=== PATIENT | male | born 1955 | race Caucasian/White ===

== ENCOUNTER 2017-05-06 11:19 | Emergency (ER) | payer BC ==
--- NOTE | 2017-05-06 11:25 | EDM.PDOC ---
ED HPI GENERAL MEDICAL PROBLEM - General Chief Complaint: Cardiovascular Problem Stated Complaint: SENT BY DR VANG FOR BLOOD CLOT Time Seen by Provider: 05/06/17 11:24 Source of Information: Reports: Patient History Limitations: Reports: No Limitations - History of Present Illness INITIAL COMMENTS - FREE TEXT/NARRATIVE: 62-year-old male sent across from [facility] after CT done this morning identified bilateral pulmonary emboli. Apparently was seen by his physician late Thursday afternoon in December and an last week and did have lab draw. His d- dimer apparently came back markedly elevated and he received a phone call yesterday apparently indicating that he needed a CT pulmonary angiogram. Instead of coming all the way back to [place] he elected to have it done here. He is asymptomatic. He has no dyspnea although he is a little short of breath on exertion. He has no pleuritic chest pain denies any cough or hemoptysis. 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 No history of DVT in the past. No pain in his calves or legs. Therefore essentially has no reason to have bilateral pulmonary emboli. Onset: Sudden Onset Date: 04/30/17 Duration: Day(s): Location: Reports: Chest ([place] a little short of breath was a reason for seeing the doctor.) Quality: Reports: Other Severity: Mild (Mild dyspnea on exertion worse than when he would normally experience.) Improves with: Reports: Rest Worsens with: Reports: Other (Exertion.) Context: Denies: Activity, Exercise, Lifting, Sick Contact, Trauma, Other Associated Symptoms: Reports: Other (No pleuritic chest pain or hemoptysis.). 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 (see below) (None.) - Related Data Allergies Allergy/AdvReac Type Severity Reaction Status Date / Time No Known Allergies Allergy Verified 05/06/17 11:35 Home Meds: Home Meds Apixaban [Eliquis] 5 mg PO BID #60 tablet 05/06/17 [Rx] Past Medical History HEENT History: Reports: Cataract - Past Surgical History Musculoskeletal Surgical History: Reports: Arthroscopic Knee Social & Family History - Recreational Drug Use Recreational Drug Use: No Drug Use in Last 12 Months: No - Living Situation & Occupation Living situation: Reports: Occupation: Employed ED ROS GENERAL - Review of Systems Review Of Systems: See Below Constitutional: Reports: Malaise. Denies: Fever, Chills, Weakness, Fatigue, Night Sweats, Diaphoresis, Decreased Appetite, Weight Loss HEENT: Reports: No Symptoms Respiratory: Reports: Shortness of Breath. Denies: Wheezing, Pleuritic Chest Pain (Just slightly more short of breath on minimal exertion.), Cough, Sputum, Hemoptysis, Other Cardiovascular: Reports: Blood Pressure Problem, Dyspnea on Exertion. Denies: No Symptoms, Chest Pain, Claudication, Edema, Lightheadedness, Orthopnea Endocrine: Reports: No Symptoms GI/Abdominal: Reports: No Symptoms : Reports: No Symptoms Musculoskeletal: Reports: No Symptoms Skin: Reports: No Symptoms Neurological: Reports: No Symptoms Psychiatric: Reports: No Symptoms Hematologic/Lymphatic: Reports: No Symptoms Immunologic: Reports: No Symptoms ED EXAM, GENERAL - Physical Exam Exam: See Below Exam Limited By: No Limitations General Appearance: Alert, WD/WN, No Apparent Distress, Other (O2 sats are 95% on room air.) Eye Exam: Bilateral Eye: Normal Inspection Neck: Normal Inspection, Supple, Non-Tender, Full Range of Motion. No: Carotid Bruit, Lymphadenopathy (L), Lymphadenopathy (R) Respiratory/Chest: No Respiratory Distress, Lungs Clear, Normal Breath Sounds, No Accessory Muscle Use, Chest Non-Tender. No: Respiratory Distress, Rhonchi, Wheezing Cardiovascular: Normal Peripheral Pulses, Regular Rate, Rhythm, No Edema, No Gallop, No Murmur Peripheral Pulses: 2+: Posterior Tibial (L), Posterior Tibial (R), Dorsalis Pedis (L), Dorsalis Pedis (R) GI/Abdominal: Normal Bowel Sounds, Soft, Non-Tender, No Organomegaly, No Distention, No Abnormal Bruit, No Mass (Male) Exam: Other Extremities: Normal Inspection, Normal Range of Motion, Non-Tender, No Pedal Edema, Normal Capillary Refill, Other (There is no evidence in on examination of his lower extremities ) Neurological: Alert, Oriented, CN II-XII Intact, Normal Cognition, Normal Gait Psychiatric: Normal Affect, Normal Mood Skin Exam: Warm, Dry, Intact, Normal Color, No Rash Course - Vital Signs Last Recorded V/S: Last Vital Signs Temp 36.9 C 05/06/17 11:28 Pulse 74 05/06/17 11:28 Resp 12 05/06/17 11:28 BP 140/94 H 05/06/17 11:28 Pulse Ox 95 05/06/17 11:28 - Orders/Labs/Meds Orders: Active Orders 24 hr Category Date Time Status Abdomen Pelvis w Cont [CT] Stat Exams 05/06/17 13:59 Taken Venous Doppler Lwr Ext Bi [US] Stat Exams 05/06/17 11:45 Taken FACTOR 5 LEIDEN MUTATION [REF] Stat Lab 05/06/17 14:30 Ordered MISC TEST Stat Lab 05/06/17 11:40 Received PROTEIN C AND S ACTIVITY [REF] Stat Lab 05/06/17 11:36 Ordered Labs: Laboratory Tests 05/06/17 05/06/17 05/06/17 Range/Units 11:40 11:40 11:40 WBC 7.70 (4.23-9.07) K/mm3 RBC 5.31 (4.63-6.08) M/mm3 Hgb 15.3 (13.7-17.5) gm/L Hct 47.2 (40.1-51.0) % MCV 88.9 (79.0-92.2) fl MCH 28.8 (25.7-32.2) pg MCHC 32.4 (32.2-35.5) g/dl RDW Std Deviation 46.3 H (35.1-43.9) fL Plt Count 219 (163-337) K/mm3 MPV 10.4 (9.4-12.3) fl Neutrophils % (Manual) 66 H (40-60) % Band Neutrophils % 0 (0-10) % Lymphocytes % (Manual) 26 (20-40) % Atypical Lymphs % 0 % Monocytes % (Manual) 5 (2-10) % Eosinophils % (Manual) 2 (0.8-7.0) % Basophils % (Manual) 1 (0.2-1.2) Platelet Estimate Adequate RBC Morph Comment Normal PT (8.0-13.0) SECONDS INR APTT (22-36) SECONDS D-Dimer, Quantitative 5.19 H (0.19-0.59) mg/L Sodium 141 (136-145) mEq/L Potassium 4.1 (3.5-5.1) mEq/L Chloride 106 (98-107) mEq/L Carbon Dioxide 28 (21-32) mEq/L Anion Gap 11.1 (5-15) BUN 22 H (7-18) mg/dL Creatinine 1.2 (0.7-1.3) mg/dL Est Cr Clr Drug Dosing 65.52 mL/min Estimated GFR (MDRD) > 60 (>60) mL/min BUN/Creatinine Ratio 18.3 H (14-18) Glucose 98 (80-115) mg/dL Calcium 9.2 (8.5-10.1) mg/dL Total Bilirubin 0.6 (0.2-1.0) mg/dL AST 19 (15-37) U/L ALT 20 (16-63) U/L Alkaline Phosphatase 90 (46-116) U/L Total Protein 7.7 (6.4-8.2) g/dl Albumin 3.6 (3.4-5.0) g/dl Globulin 4.1 gm/dL Albumin/Globulin Ratio 0.9 L (1-2) 05/06/17 05/06/17 Range/Units 11:40 11:40 WBC (4.23-9.07) K/mm3 RBC (4.63-6.08) M/mm3 Hgb (13.7-17.5) gm/L Hct (40.1-51.0) % MCV (79.0-92.2) fl MCH (25.7-32.2) pg MCHC (32.2-35.5) g/dl RDW Std Deviation (35.1-43.9) fL Plt Count (163-337) K/mm3 MPV (9.4-12.3) fl Neutrophils % (Manual) (40-60) % Band Neutrophils % (0-10) % Lymphocytes % (Manual) (20-40) % Atypical Lymphs % % Monocytes % (Manual) (2-10) % Eosinophils % (Manual) (0.8-7.0) % Basophils % (Manual) (0.2-1.2) Platelet Estimate RBC Morph Comment PT 11.0 (8.0-13.0) SECONDS INR 1.01 APTT 22 (22-36) SECONDS D-Dimer, Quantitative (0.19-0.59) mg/L Sodium (136-145) mEq/L Potassium (3.5-5.1) mEq/L Chloride (98-107) mEq/L Carbon Dioxide (21-32) mEq/L Anion Gap (5-15) BUN (7-18) mg/dL Creatinine (0.7-1.3) mg/dL Est Cr Clr Drug Dosing mL/min Estimated GFR (MDRD) (>60) mL/min BUN/Creatinine Ratio (14-18) Glucose (80-115) mg/dL Calcium (8.5-10.1) mg/dL Total Bilirubin (0.2-1.0) mg/dL AST (15-37) U/L ALT (16-63) U/L Alkaline Phosphatase (46-116) U/L Total Protein (6.4-8.2) g/dl Albumin (3.4-5.0) g/dl Globulin gm/dL Albumin/Globulin Ratio (1-2) Meds: Medications Discontinued Medications Generic Name Dose Route Start Last Admin Trade Name Karina PRN Reason Stop Dose Admin Apixaban 10 mg 05/06/17 15:11 05/06/17 15:31 Eliquis PO 05/06/17 15:12 10 mg ONETIME ONE Administration Enoxaparin Sodium 75 mg 05/06/17 11:45 05/06/17 11:54 Lovenox SUBCUT 75 mg Q12HR BERE Administration Sodium Chloride 1,000 mls @ 999 mls/hr 05/06/17 12:30 05/06/17 13:45 Normal Saline IV 999 mls/hr ASDIRECTED BERE Administration Iopamidol 100 ml 05/06/17 14:17 05/06/17 14:23 Isovue-370 (76%) IVPUSH 05/06/17 14:18 100 ml ONETIME ONE Administration Sodium Chloride 10 ml 05/06/17 14:17 05/06/17 14:23 Saline Flush FLUSH 05/06/17 14:18 10 ml ONETIME ONE Administration - Radiology Interpretation Free Text/Narrative:: 62-year-old male presents the ED after being told that he has bilateral pulmonary emboli on CT exam done over at [facility] this morning. Family was in [place] last week was seen late Thursday by his doctor Dr. Vang. Work was apparently obtained at that time which included a d-dimer. D-dimer apparently value came back elevated and patient was notified of this finding. He was advised to come back to [place] first CT but preferred to have it done in [place] since he is so close. Therefore he had CT performed this morning which confirmed a diagnosis of bilateral pulmonary emboli. He has no reason to have prominent emboli with no obvious DVTs in either lower extremity. Therefore help lab work carried out to look for underlying factor deficiency protein C protein S antithrombin III and cardiolipin antibodies. Will be given a dose of Lovenox 75 mg subcutaneously at this time. Chances are to avoid hospitalization he will be placed on Eliquis and use this as a treatment plan versus coming into hospital etc. If nothing is found on Doppler ultrasound of both lower extremities were plan will be to CT his abdomen. - Re-Assessments/Exams Free Text/Narrative Re-Assessment/Exam: 05/06/17 12:23 i Was able to over read the CT of the chest that was carried out this morning at [facility]. There are multiple bilateral pulmonary emboli particularly noted on the right side second and tertiary branches. There are also pulmonary emboli in the inferior branches on the left side as well. The CT does travel below the diaphragm and I'm not able to visualize the right kidney at all ,although he is a large mass which could be A mass lesion versus a cystic structure. The left kidney that was visualized appears normal as did the pancreas and liver. Ideally a CT of his abdomen should be performed. The problem is how much contrast should he have IN 1 day. We'll await his lab tests. 05/06/17 13:40 labs revealed a white count of 7.70 with 66% neutrophils and no bands hemoglobin is 15.3 hematocrit is 4.7 to flatus 219,000. PT is 11.0 INR is 1.01 PTT was 22. D-dimer was elevated at 5.19. Sodium 141 potassium 4.1. Chloride 106 bicarbonate 28. Anion gap is 11.1. Glucose is 98. He is creatinine is 1.1 with a GFR greater than 60. I contacted the tech that gave the dye that this morning and they gave 50 mils of contrast. Therefore we felt it was suitable to proceed with CT of the abdomen and pelvis to make sure that the kidney lesion on the right side is a cyst and not a mass. In the meantime he is in Doppler ultrasound for Doppler on both lower extremities. 05/06/17 14:43 view at radiologist called and suspects there is an acute clot in the right popliteal fossa and also involving the right peroneal calf vein. He also identified a thrombus in the left popliteal fossa which he thought probably was old. It was only partially occlusive. The DVT in the right Is totally occlusive in the popliteal vein. He is back from CT. There appears to be a very large cyst on the superior pole of the right kidney. Gallbladder is small and contracted without evidence of stones. Liver has a homogeneous appearance. Pancreas is ill-defined without oral contrast. There is fluid within the stomach content. Minimal hiatal hernia evident. Left kidney also contains a small cyst in the superior pole. Bladder is full prostate is significantly enlarged. Several diverticula are noted throughout the sigmoid colon without any active diverticulitis. 05/06/17 15:11 unfortunately they have to travel to [place] to worm picker the his 's sister who just flew in from [place]. Therefore I will give him Eliquis 10 mg by mouth through the ED at this time. They do have the prescription available in [facility] and he'll worm picker his next dose tomorrow morning. He 'll be started on 10 mg twice a day for 7 days and then be 5 mg twice a day after this. Departure - Departure Time of Disposition: 15:12 Disposition: Home, Self-Care 01 Condition: Fair Clinical Impression: Acute deep vein thrombosis of right popliteal vein Pulmonary embolism Qualifiers: Pulmonary embolism type: other Chronicity: acute Acute cor pulmonale presence: without acute cor pulmonale Qualified Code(s): I26.99 - Other pulmonary embolism without acute cor pulmonale Prescriptions: Apixaban [Eliquis] 5 mg PO BID #60 tablet Instructions: Pulmonary Embolism Referrals: PCP,None [Primary Care Provider] - Forms: ED Department Discharge Additional Instructions: Evaluation the emergency room today in regards to findings of bilateral blood clots within your lungs this morning on CT scan done at [facility]. Checkup with Dr. nery Winkler last week identified via blood test that you had an elevated d-dimer test which is a test we used to see how much breakup of clot is occurring. There is came back elevated. This prompted further investigation by way of CT scan this morning. In the ED you had ultrasound done on both lower extremities although clinically there was no signs of deep venous thrombosis in either leg. Deep venous thrombosis was found in the popliteal vein which is behind her knee on the right side and in the common peroneal vein which travels down towards the foot. Her to be a partially occlusive clot in the left popliteal vein suggesting an old clot may have occurred in this area in the past. This suggests you to have a propensity to clotting in your lower extremities and temperature at high risk of recurrent pulmonary emboli. It would be my suggestion therefore that you stay on medications to prevent blood clot formation such as Eliquis for the rest of your life. The cost of this medication can be somewhat prohibitive and the alternative would be using Coumadin which means more blood tests have to be checked almost on a monthly basis.At this time we will start you on Eliquis 10 mg in the ED and then you're to take this twice daily for the next week and then 5 mg tablet twice daily forever. - My Orders Last 24 Hours: My Active Orders 05/06/17 11:36 PROTEIN C AND S ACTIVITY [REF] Stat 05/06/17 11:40 MISC TEST Stat 05/06/17 11:45 Venous Doppler Lwr Ext Bi [US] Stat 05/06/17 13:59 Abdomen Pelvis w Cont [CT] Stat 05/06/17 14:30 FACTOR 5 LEIDEN MUTATION [REF] Stat - Assessment/Plan Last 24 Hours: My Active Orders 05/06/17 11:36 PROTEIN C AND S ACTIVITY [REF] Stat 05/06/17 11:40 MISC TEST Stat 05/06/17 11:45 Venous Doppler Lwr Ext Bi [US] Stat 05/06/17 13:59 Abdomen Pelvis w Cont [CT] Stat 05/06/17 14:30 FACTOR 5 LEIDEN MUTATION [REF] Stat
[2017-05-06 11:35] VITALS: BP 140/94
[2017-05-06] MEDS ORDERED: Enoxaparin 80 MG/0.8 ML Syringe SUBCUT SCH (11:45)
[2017-05-06] MEDS ORDERED: Sodium Chloride 0.9% 1,000 ML IV SCH (12:30)
[2017-05-06] MEDS ORDERED: Sodium Chloride 0.9% 10 ML Syringe FLUSH ONE (14:17)
[2017-05-06] MEDS ORDERED: Iopamidol 755 Mg/ML 100 ML Bottle IVPUSH ONE (14:17)
[2017-05-06] MEDS ORDERED: Apixaban 5 MG Tab PO ONE (15:11)
--- NOTE | 2017-05-07 10:35 | US ---
Bilateral lower extremity deep venous ultrasound: Duplex and color flow imaging was obtained of the right and left common femoral, greater saphenous, superficial femoral, popliteal, posterior tibial and peroneal veins. Findings: Thrombus appears to be present within the popliteal and peroneal veins on the right side. Partially obstructing thrombus which is possibly old is noted within the left popliteal vein. No other findings of venous thrombosis is seen. Impression: 1. Partially obstructing thrombus within the popliteal and peroneal vein on the right side most likely acute. 2. Probable old partially occluding left popliteal thrombosis. Diagnostic code #5 Agree with preliminary report issued by [facility] ([facility] preliminary report dictated on 05/06/17, 3:18 PM Central Time)
--- NOTE | 2017-05-07 13:05 | CT ---
CT abdomen and pelvis Technique: Multiple axial sections were obtained from above the dome of the diaphragm inferiorly through the pubic symphysis. Intravenous contrast was utilized. No oral contrast has been given. Findings: Emphysematous change is seen within both lung bases with linear densities most likely due to combination of scarring and atelectasis. Liver shows no focal parenchymal abnormality. Mass effect upon the right lobe of the liver is seen due to a large upper pole renal cyst which measures about 13.2 cm in size. Several other smaller cysts are seen within the right kidney and left kidney. Symmetric contrast enhancement is seen of both kidneys. Delayed images show contrast within the distal ureters and within the bladder. Spleen appears within normal limits. Inferior vena cava and common iliac veins are mildly prominent in size raising the question of increased right heart pressures. Pancreas appears within normal limits. Gallbladder is contracted. Aorta shows no aneurysmal dilatation. No retroperitoneal adenopathy or mesenteric abnormalities are seen. Questionable inflammatory change around a portion of the hepatic flexure of the colon is seen. This may be old but please correlate that patient has no acute symptoms of colitis. Prostate gland is enlarged. No other pelvic abnormality is seen. Large right-sided inguinal hernia is seen with colon and terminal ileum being located within the hernia sac. Smaller left-sided inguinal hernia is seen containing small bowel. No bowel dilatation is seen to indicate incarceration within either inguinal hernia. Mild scoliosis is noted within the spine with mild scattered degenerative change most prominent at L4-L5 with vacuum phenomena. Impression: 1. Bilateral inguinal hernias containing bowel as described above. No findings of incarceration is seen at this time. 2. Large right upper pole renal cyst causing mass effect upon the right lobe of the liver. Other smaller cysts are seen within both kidneys. 3. Slightly enlarged inferior vena cava and common iliac veins raising the question of elevated right heart pressures. Please correlate. 4. Equivocal inflammatory change around the hepatic flexure of the colon. As mentioned above, this could be old but please correlate that patient has no symptoms of colitis. 5. Other incidental findings. Diagnostic code #3 Agree with preliminary report issued by [employer] ([facility] preliminary report dictated on 05/06/17, 4:24 PM Central Time)
== END 2017-05-06 15:30 | disposition home or self-care (01) ==
LOC: JD.ED 11:19
DX: I82.431 Acute embolism and thrombosis of right popliteal vein (principal); Z98.890 Other specified postprocedural states
CPT/HCPCS: 74177; 80053; 81241; 85025; 85303; 85306; 85379; 85610; 85730; 93970; 96360; 96372; 99285; A9270; J1650; J7040; J7050; Q9967; 36415; 86147; 99284

== ENCOUNTER → 2017-07-21 | Day surgery (SDC) | payer BC ==
[~2017-07-21] MED LIST: Brimonidine 0.2% Ophth Soln 5 ML Bottle EYEBOTH SCH; Phenylephrine 2.5% Ophth Soln 2 ML Bot EYEBOTH SCH
[2017-07-21 13:45] VITALS: BP 124/89
== END ==
LOC: JD.SDS 10:22
PROVIDERS: ATTEND Ophthalmology
DX: H26.493 Other secondary cataract, bilateral (principal); H16.103 Unspecified superficial keratitis, bilateral; H11.153 Pinguecula, bilateral; H02.833 Dermatochalasis of right eye, unspecified eyelid; H02.836 Dermatochalasis of left eye, unspecified eyelid; Z98.42 Cataract extraction status, left eye; Z98.41 Cataract extraction status, right eye; Z96.1 Presence of intraocular lens; Z79.01 Long term (current) use of anticoagulants; Z90.49 Acquired absence of other specified parts of digestive tract

== ENCOUNTER 2020-12-21 19:32 | Emergency (ER) | payer BC ==
[2020-12-21 19:41] VITALS: BP 136/96; PULSE 73
[2020-12-21] MEDS ORDERED: Sodium Chloride 0.9% 10 ML Syringe FLUSH PRN (19:44)
--- NOTE | 2020-12-21 20:02 | EDM.PDOC ---
ED HPI GENERAL MEDICAL PROBLEM - General Chief Complaint: Respiratory Problem Stated Complaint: COUGHING UP BLOOD Time Seen by Provider: 12/21/20 19:43 Source of Information: Reports: Patient, Family (), RN Notes Reviewed History Limitations: Reports: No Limitations - History of Present Illness INITIAL COMMENTS - FREE TEXT/NARRATIVE: Patient is a 65-year-old male who is brought into the ER by his for the evaluation of his coughing up blood. Patient notes that he got off work at around 6 PM, since then he has had 5 or 6 episodes of coughing up bright red blood. There is some clot-like material within the sputum produced. 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 Notes he has not missed any doses of Eliquis. O2 sats at the time of triage were 85% on room air, and they improved to 97% on 2 L nasal cannula, he appears to be in no visible respiratory distress. Patient states that he did get more winded than he normally would have today at work. He has not noted any chest pain, fevers or chills, nausea/vomiting/diarrhea. He is under the care of a two needle machine operator at [facility] in [place], and the states that he does have a concurrent bacterial infection in his lungs, and he is on some sort of experimental drug for this. - Related Data Allergies Allergy/AdvReac Type Severity Reaction Status Date / Time No Known Allergies Allergy Verified 12/21/20 19:41 Home Meds: Home Meds Apixaban [Eliquis] 2.5 mg PO BID 12/21/20 [History] Azithromycin 500 mg PO DAILY 12/21/20 [History] Clofazimine 2 cap PO DAILY 12/21/20 [History] Ethambutol HCl 400 mg PO DAILY 12/21/20 [History] Fluticasone Propion/Salmeterol [Advair 250-50 Diskus] 1 puff INH DAILY 12/21/20 [History] Past Medical History HEENT History: Reports: Cataract Respiratory History: Reports: PE, Other (See Below) Other Respiratory History: bacterial infection in lungs - Past Surgical History GI Surgical History: Reports: Appendectomy Male Surgical History: Reports: Vasectomy Musculoskeletal Surgical History: Reports: Arthroscopic Knee Social & Family History - Tobacco Use Tobacco Use Status *Q: Never Tobacco User - Caffeine Use Caffeine Use: Reports: Coffee - Recreational Drug Use Recreational Drug Use: No - Living Situation & Occupation Living situation: Reports: Occupation: Employed ED ROS GENERAL - Review of Systems Review Of Systems: Comprehensive ROS is negative, except as noted in HPI. ED EXAM, GENERAL - Physical Exam Exam: See Below Exam Limited By: No Limitations General Appearance: Alert, WD/WN, No Apparent Distress Respiratory/Chest: No Respiratory Distress, Lungs Clear, Normal Breath Sounds, No Accessory Muscle Use, Chest Non-Tender Cardiovascular: Normal Peripheral Pulses, Regular Rate, Rhythm, No Edema Peripheral Pulses: 2+: Radial (L), Radial (R) Extremities: Normal Inspection, Normal Capillary Refill Neurological: Alert, Oriented, Normal Cognition, No Motor/Sensory Deficits Psychiatric: Normal Affect, Normal Mood Skin Exam: Warm, Dry, Intact, Normal Color, No Rash #1 Interpretation EKG Date: 12/21/20 Time: 19:57 Rhythm: NSR Rate (Beats/Min): 67 Pine: RAD-Right Pine Deviation (106 ) P-Wave: Present QRS: Normal ST-T: Depressed (slight in V1-2, with T wave inversion) QT: Normal Comparison: NA - No Prior EKG EKG Interpretation Comments: EKG was reviewed by myself and Dr. Shahid, he did appreciate T wave inversion in V1 and V2, along with right axis deviation, suspect patient has possible cor pulmonale. Course - Vital Signs Last Recorded V/S: Last Vital Signs Temp 97.5 F 12/21/20 19:38 Pulse 73 12/21/20 19:38 Resp 15 12/21/20 19:38 BP 136/96 H 12/21/20 19:38 Pulse Ox 85 L 12/21/20 19:38 - Orders/Labs/Meds Orders: Active Orders 24 hr Category Date Time Status Chest w Cont [CT] Stat Exams 12/21/20 19:44 Taken CULTURE BLOOD [BC] Stat Lab 12/21/20 22:02 Received CULTURE BLOOD [BC] Stat Lab 12/21/20 22:09 Received Blood Culture x2 Reflex Set [OM.PC] Stat Oth 12/21/20 21:49 Ordered Peripheral IV Insertion Adult [OM.PC] Routine Oth 12/21/20 19:44 Ordered Labs: Laboratory Tests 12/21/20 12/21/20 12/21/20 Range/Units 19:42 19:42 19:42 WBC 7.20 (4.23-9.07) K/mm3 RBC 4.64 (4.63-6.08) M/mm3 Hgb 14.5 (13.7-17.5) gm/dl Hct 42.8 (40.1-51.0) % MCV 92.2 (79.0-92.2) fl MCH 31.3 (25.7-32.2) pg MCHC 33.9 (32.2-35.5) g/dl RDW Std Deviation 44.9 H (35.1-43.9) fL Plt Count 201 (163-337) K/mm3 MPV 10.0 (9.4-12.3) fl Neutrophils % (Manual) 78 H (40-60) % Band Neutrophils % 0 (0-10) % Lymphocytes % (Manual) 15 L (20-40) % Atypical Lymphs % 0 % Monocytes % (Manual) 6 (2-10) % Eosinophils % (Manual) 1 (0.8-7.0) % Basophils % (Manual) 0 L (0.2-1.2) Platelet Estimate Adequate RBC Morph Comment Normal PT 10.8 (9.7-12.0) SECONDS INR 1.01 APTT 27.0 (21.7-31.4) SECONDS D-Dimer, Quantitative 0.33 (0.19-0.50) mg/L Sodium (136-145) mEq/L Potassium (3.5-5.1) mEq/L Chloride (98-107) mEq/L Carbon Dioxide (21-32) mEq/L Anion Gap (5-15) BUN (7-18) mg/dL Creatinine (0.7-1.3) mg/dL Est Cr Clr Drug Dosing mL/min Estimated GFR (MDRD) (>60) mL/min BUN/Creatinine Ratio (14-18) Glucose (80-115) mg/dL Calcium (8.5-10.1) mg/dL Magnesium (1.8-2.4) mg/dl Ferritin (26-388) ng/ml Total Bilirubin (0.2-1.0) mg/dL AST (15-37) U/L ALT (16-63) U/L Alkaline Phosphatase (46-116) U/L Troponin I (0.00-0.056) ng/mL C-Reactive Protein 7.5 H* (<1.0) mg/dL NT-Pro-B Natriuret Pep (0-125) pg/mL Total Protein (6.4-8.2) g/dl Albumin (3.4-5.0) g/dl Globulin gm/dL Albumin/Globulin Ratio (1-2) Influenza Type A RNA (NEGATIVE) Influenza Type B RNA (NEGATIVE) SARS-CoV-2 RNA (KYLE) (NEGATIVE) 12/21/20 12/21/20 12/21/20 Range/Units 19:42 19:42 19:42 WBC (4.23-9.07) K/mm3 RBC (4.63-6.08) M/mm3 Hgb (13.7-17.5) gm/dl Hct (40.1-51.0) % MCV (79.0-92.2) fl MCH (25.7-32.2) pg MCHC (32.2-35.5) g/dl RDW Std Deviation (35.1-43.9) fL Plt Count (163-337) K/mm3 MPV (9.4-12.3) fl Neutrophils % (Manual) (40-60) % Band Neutrophils % (0-10) % Lymphocytes % (Manual) (20-40) % Atypical Lymphs % % Monocytes % (Manual) (2-10) % Eosinophils % (Manual) (0.8-7.0) % Basophils % (Manual) (0.2-1.2) Platelet Estimate RBC Morph Comment PT (9.7-12.0) SECONDS INR APTT (21.7-31.4) SECONDS D-Dimer, Quantitative (0.19-0.50) mg/L Sodium 138 (136-145) mEq/L Potassium 4.2 (3.5-5.1) mEq/L Chloride 105 (98-107) mEq/L Carbon Dioxide 22 (21-32) mEq/L Anion Gap 15.2 H (5-15) BUN 26 H (7-18) mg/dL Creatinine 1.3 (0.7-1.3) mg/dL Est Cr Clr Drug Dosing 56.63 mL/min Estimated GFR (MDRD) 55 (>60) mL/min BUN/Creatinine Ratio 20.0 H (14-18) Glucose 106 (80-115) mg/dL Calcium 8.5 (8.5-10.1) mg/dL Magnesium 2.2 (1.8-2.4) mg/dl Ferritin 398 H (26-388) ng/ml Total Bilirubin 0.5 (0.2-1.0) mg/dL AST 27 (15-37) U/L ALT 35 (16-63) U/L Alkaline Phosphatase 72 (46-116) U/L Troponin I < 0.017 (0.00-0.056) ng/mL C-Reactive Protein (<1.0) mg/dL NT-Pro-B Natriuret Pep 301 H (0-125) pg/mL Total Protein 7.2 (6.4-8.2) g/dl Albumin 3.2 L (3.4-5.0) g/dl Globulin 4.0 gm/dL Albumin/Globulin Ratio 0.8 L (1-2) Influenza Type A RNA (NEGATIVE) Influenza Type B RNA (NEGATIVE) SARS-CoV-2 RNA (KYLE) (NEGATIVE) 12/21/20 Range/Units 20:07 WBC (4.23-9.07) K/mm3 RBC (4.63-6.08) M/mm3 Hgb (13.7-17.5) gm/dl Hct (40.1-51.0) % MCV (79.0-92.2) fl MCH (25.7-32.2) pg MCHC (32.2-35.5) g/dl RDW Std Deviation (35.1-43.9) fL Plt Count (163-337) K/mm3 MPV (9.4-12.3) fl Neutrophils % (Manual) (40-60) % Band Neutrophils % (0-10) % Lymphocytes % (Manual) (20-40) % Atypical Lymphs % % Monocytes % (Manual) (2-10) % Eosinophils % (Manual) (0.8-7.0) % Basophils % (Manual) (0.2-1.2) Platelet Estimate RBC Morph Comment PT (9.7-12.0) SECONDS INR APTT (21.7-31.4) SECONDS D-Dimer, Quantitative (0.19-0.50) mg/L Sodium (136-145) mEq/L Potassium (3.5-5.1) mEq/L Chloride (98-107) mEq/L Carbon Dioxide (21-32) mEq/L Anion Gap (5-15) BUN (7-18) mg/dL Creatinine (0.7-1.3) mg/dL Est Cr Clr Drug Dosing mL/min Estimated GFR (MDRD) (>60) mL/min BUN/Creatinine Ratio (14-18) Glucose (80-115) mg/dL Calcium (8.5-10.1) mg/dL Magnesium (1.8-2.4) mg/dl Ferritin (26-388) ng/ml Total Bilirubin (0.2-1.0) mg/dL AST (15-37) U/L ALT (16-63) U/L Alkaline Phosphatase (46-116) U/L Troponin I (0.00-0.056) ng/mL C-Reactive Protein (<1.0) mg/dL NT-Pro-B Natriuret Pep (0-125) pg/mL Total Protein (6.4-8.2) g/dl Albumin (3.4-5.0) g/dl Globulin gm/dL Albumin/Globulin Ratio (1-2) Influenza Type A RNA Negative (NEGATIVE) Influenza Type B RNA Negative (NEGATIVE) SARS-CoV-2 RNA (KYLE) Negative (NEGATIVE) Meds: Medications Discontinued Medications Generic Name Dose Route Start Last Admin Trade Name Freq PRN Reason Stop Dose Admin Piperacillin Sod/Tazobactam 100 mls @ 200 mls/hr 12/21/20 21:38 12/21/20 22:09 Sod 4.5 gm/ Sodium Chloride IV 12/21/20 22:07 200 mls/hr ONETIME ONE Administration Iopamidol 100 ml 12/21/20 20:39 12/21/20 20:40 Iopamidol 755 Mg/Ml 100 Ml Bottle IVPUSH 12/21/20 20:40 100 ml ONETIME ONE Administration Sodium Chloride 10 ml 12/21/20 19:44 12/21/20 19:46 Sodium Chloride 0.9% 10 Ml Syringe FLUSH 10 ml ASDIRECTED PRN Administration Keep Vein Open Sodium Chloride 10 ml 12/21/20 20:39 12/21/20 20:40 Sodium Chloride 0.9% 10 Ml Syringe FLUSH 12/21/20 20:40 10 ml ONETIME ONE Administration - Re-Assessments/Exams Free Text/Narrative Re-Assessment/Exam: 12/21/20 20:10 Patient presents to the ER for his coughing up blood. We will go ahead and get a chest CT with contrast, as discussed with Dr. Shahid. He states there is low likelihood of pulmonary embolus due to the patient being on Eliquis and not having missed a dose. Chest CT will be to evaluate for possible mass versus other etiology. We will go ahead get a Covid swab, EKG was obtained demonstrates T wave inversion in V1 V2 with right axis deviation, suspect cor pulmonale. Labs will be obtained for further evaluation. 12/21/20 20:52 Labs have started to result, patient CBC is essentially unremarkable, coagulation studies are unremarkable as well, D-dimer within normal limits at 0.33, metabolic panel essentially unremarkable ferritin is slightly elevated at 398, CRP elevated at 7.5, troponin undetectably low. BNP is also slightly elevated at 301. 12/21/20 20:55 Patient's Covid screen did come back negative along with his flu screen. CT has been taken, just awaiting official radiology report. 12/21/20 21:24 CT has been done, there is scattered moderate to large airspace consolidation throughout the left lung, some of which demonstrate early cavitation. Findings favor infectious/inflammatory cavitating pneumonia, however underlying infiltrative diseases within the differential diagnosis. He has scattered pulmonary nodules measuring up to 7 mm. These are nonspecific and short interval follow-up in 3 months is recommended. Patient also did have a 11.6 cm right renal cyst appreciated, ultrasound should be considered in a nonemergent setting. I have pushed the images to [facility] in [place], I will go ahead and talk with her two needle machine operator on-call and see if they have further recommendations versus disposition versus transfer to [place] due to hemoptysis and hypoxia. 12/21/20 21:41 I did consult [facility] in [place], regarding the patient's hemoptysis and hypoxia, does recommend that the patient be transferred to their facility for ongoing management, he states likely patient will need a bronchoscopy. I have been transferred to the hospitalist for admission, At this time they did not have any more inpatient beds; but that we could try back later for admission. did recommend that Zosyn be started, and that the patient stop his Eliquis at this time with plan to do bronchoscopy Thursday. 12/21/20 22:30 I had been in contact with our hospitalist, Dr. Hu to admit for antibiotics overnight with plan to transfer to [facility] in the AM, but he states he would not feel comfortable with this as the patient needs pulmonology, and he did not think admitting here was appropriate. I did call [facility] in [place], they stated that they would have a bed for the patient but would be starting from scratch with him as well. Dr. Hill said that they would hold a bed at their facility; but to try [facility] back a few hours later or early AM to see if their bed status had changed, and to see if they would take the patient later in the morning. The [place] shell sieve operator Otherwise she states that they'd be glad to take the patient in transfer in early AM if [facility] was not an option. I talked with the Charge nurse Grace, the patient and his ; they are okay with this plan. I have updated Dr. Edwards on the patient and he will gladly take care of the patient until we can try to transfer later in the AM. Departure - Departure Time of Disposition: 21:43 Disposition: DC/Tfer to Acute Hospital 02 Condition: Good Clinical Impression: Cough with hemoptysis, Hypoxia, Cavitating mass in left upper lung lobe - Discharge Information Referrals: PCP,Not In Area [Primary Care Provider] - Forms: ED Department Discharge Sepsis Event Note (ED) - Evaluation Sepsis Screening Result: No Definite Risk - My Orders Last 24 Hours: My Active Orders 12/21/20 19:44 Chest w Cont [CT] Stat Peripheral IV Insertion Adult [OM.PC] Routine 12/21/20 21:49 Blood Culture x2 Reflex Set [OM.PC] Stat 12/21/20 22:02 CULTURE BLOOD [BC] Stat 12/21/20 22:09 CULTURE BLOOD [BC] Stat - Assessment/Plan Last 24 Hours: My Active Orders 12/21/20 19:44 Chest w Cont [CT] Stat Peripheral IV Insertion Adult [OM.PC] Routine 12/21/20 21:49 Blood Culture x2 Reflex Set [OM.PC] Stat 12/21/20 22:02 CULTURE BLOOD [BC] Stat 12/21/20 22:09 CULTURE BLOOD [BC] Stat
[2020-12-21] MEDS ORDERED: Sodium Chloride 0.9% 10 ML Syringe FLUSH ONE (20:39)
[2020-12-21] MEDS ORDERED: Iopamidol 755 Mg/ML 100 ML Bottle IVPUSH ONE (20:39)
[2020-12-21 20:51] LABS: CORONAVIRUS COVID-19 NAA NEGATIVE (NEGATIVE)
[2020-12-21] MEDS ORDERED: Piperacillin/Tazobactam 4.5 GM in Sodium Chloride 0.9% 100 ML IV ONE (21:38)
--- NOTE | 2020-12-24 08:40 | CT ---
CT chest Technique: Multiple axial sections were obtained from above the lung apices inferiorly through the lung bases. Intravenous contrast was utilized. Comparison: No prior chest imaging is available. Findings: Mild atherosclerotic change is seen within the thoracic aorta. Thoracic aorta shows no aneurysm or dissection. No mediastinal adenopathy or mass is seen. No pericardial thickening is seen. Large cyst is noted off the right kidney measuring up to 11.9 cm. No additional abnormality is seen within the upper visualized abdominal structures. Patchy areas of increased density are seen within the upper left lung and lingula. Additional densities are noted within the left lower lobe. Right lung appears to be clear. Very minimal nodularity is noted within the left lung. Bone window settings were reviewed which shows no acute osseous abnormality. Impression: 1. Patchy increased density within the left upper lung, lingula and left lower lung. Findings most likely are due to pneumonia. Please correlate if patient has infectious symptoms. Follow-up chest CT recommended several months after clinical therapy is complete to make sure findings resolve. Difficult at this time to exclude more complicated infection or neoplasm. 2. Minimal nodularity is seen which can be re-evaluated on follow-up chest CT. 3. Other incidental findings as noted above. Diagnostic code #3 I agree with preliminary report from [facility], finalized on 12/21/20, 10:08 PM CDT, code 1
== END 2020-12-22 06:15 ==
LOC: JD.ED 19:32
DX: R04.2 Hemoptysis (principal); R09.02 Hypoxemia; R91.8 Other nonspecific abnormal finding of lung field; Z20.822 Contact with and (suspected) exposure to COVID-19; Z86.711 Personal history of pulmonary embolism; Z79.01 Long term (current) use of anticoagulants
CPT/HCPCS: 0240U; 36415; 71260; 80053; 82728; 83735; 83880; 84484; 85007; 85027; 85379; 85610; 85730; 86140; 87040; 93005; 96365; 99285; J2543; Q9967; 93010; 99284